=== PATIENT | male | born 1935 | race African-American/Black ===

== ENCOUNTER 2018-11-09 17:19 | Emergency (ER) | payer OTHER ==
[~2018-11-09] VITALS: Ht 172.7 cm; Wt 73.6 kg
[2018-11-09] MEDS ORDERED: RIOMET500 MG/5 M PO (17:30)
[2018-11-09] MEDS ORDERED: LIPITOR20 MG PO (17:30)
[2018-11-09] MEDS ORDERED: ASPIRIN81 MG PO (17:30)
[2018-11-09 17:31] VITALS: Ht 172.7 cm; Wt 73.6 kg
[2018-11-09] MEDS ORDERED: COREG25 MG PO (17:31)
[2018-11-09 18:58] LABS: BASOPHILS 0.1 % (0-2); EOSINOPHILS 0 % (0-7); HEMATOCRIT 45.6 % (42.0-54.0); HEMOGLOBIN 16.3 g/dL (13.5-17.5); IMMATURE GRANULOCYTES 0.3 % (0-5); LYMPHOCYTES 20.5 % (15-50); MCHC 35.7 g/dL (31.0-37.0); MCV 89.4 fL (80.0-100.0); MEAN PLATELET VOLUME 11.2 fL (7.4-10.4); MONOCYTES 4.3 % (2-11); NEUTROPHILS 74.8 % (40-80); PLATELET COUNT 210 10x3/uL (130-400); WBC 7.4 10x3/uL (4.8-10.8)
[2018-11-09 19:12] LABS: APTT 23.2 SECONDS (22.8-39.4); INR 1.05 (0.85-1.17); PROTIME 13.2 SECONDS (11.6-15.0)
[2018-11-09 19:15] LABS: ALBUMIN 3.9 g/dL (3.4-5.0); ALKALINE PHOSPHATASE 96 U/L (46-116); ALT (SGPT) 17 U/L (10-68); BILIRUBIN - TOTAL 0.65 mg/dL (0.2-1.3); CALC OSMOLALITY 268 mosm/kg (275-300); CALCIUM 9.3 mg/dL (8.5-10.1); CARBON DIOXIDE 29.8 mmol/L (21.0-32.0); CHLORIDE - SERUM 95 mmol/L (98-107); CREATININE - SERUM 0.9 mg/dL (0.6-1.3); GLUCOSE 174 mg/dL (74-106); POTASSIUM - SERUM 4.1 mmol/L (3.5-5.1); PROTEIN - SERUM 9.5 g/dL (6.4-8.2); SODIUM 133 mmol/L (136-145); UREA NITROGEN 10 mg/dL (7-18); eGFR NON AFRICAN AMERICAN 86 mL/min (90-120)
[2018-11-09 19:27] LABS: CKMB 1.8 U/L (0.0-3.6); CREATINE KINASE 127 UL (21-232); MAGNESIUM - SERUM 1.8 mg/dL (1.8-2.4); THYROID STIMULATING HORMONE 0.34 uIU/mL (0.36-3.74)
[2018-11-09 19:28] LABS: TROPONIN-I < 0.017 ng/mL (0.000-0.060)
[2018-11-09 19:32] LABS: APPEARANCE CLEAR (CLEAR); BILIRUBIN NEGATIVE (NEGATIVE); COLOR STRAW (YELLOW); GLUCOSE 250 mg/dL (NEGATIVE); KETONE NEGATIVE (NEGATIVE); NITRITE NEGATIVE (NEGATIVE); PROTEIN 1+ mg/dL (NEGATIVE); UROBILINOGEN NORMAL (NORMAL)
[2018-11-09 19:41] LABS: BACTERIA NONE SEEN /hpf (NONE SEEN); EPITHELIAL CELLS NSEEN /hpf (0-5); RED CELLS - URINE NONE SEEN /hpf (0-5); WHITE CELLS - URINE 0-5 /hpf (0-5)
[2018-11-09 20:19] VITALS: BP 181/95
[2018-11-13 10:05] VITALS: Ht 172.7 cm; Wt 73.6 kg
== END 2018-11-09 20:19 | disposition other institution (70) ==
LOC: D.ER 17:19
PROVIDERS: Family Medicine
DX: I63.9 Cerebral infarction, unspecified (principal); R53.1 Weakness; R26.2 Difficulty in walking, not elsewhere classified

== ENCOUNTER 2018-11-12 16:27 | Inpatient (IN) | payer MEDICARE ==
[~2018-11-12] VITALS: Ht 172.7 cm; Wt 74.8 kg
[~2018-11-12 16:27] MED LIST: ASPIRIN81 MG PO; COREG25 MG PO; LIPITOR20 MG PO; RIOMET500 MG/5 M PO
[2018-11-12 18:03] VITALS: BP 179/88; BMI 25.1
[2018-11-12 19:59] VITALS: BP 170/83
--- NOTE | 2018-11-12 20:00 | NUR ---
PATIENT RECEIVED SITTING UP IN BED WATCHING TV. VITAL SIGNS & ASSESSMENT DONE. NO C/O PAIN OR DISTRESS. BED LOW. CALL LIGHT WITHIN REACH. ALARM ON.WILL CONTINUE TO MONITOR.
[2018-11-12 21:52] VITALS: BP 163/82
--- NOTE | 2018-11-13 03:38 | NUR ---
PATIENT EYES CLOSED. RESPIRATIONS 18 & EVEN. BED LOW. CALL LIGHT WITHIN REACH. WILL CONTINUE TO MONITOR.
--- NOTE | 2018-11-13 03:52 | NUR ---
I have reviewed this patient and I concur with the Shift Assessment completed by the Licensed Practical Nurse today this shift.
[2018-11-13 08:00] VITALS: BP 193/98
[2018-11-13 09:09] LABS: CALC OSMOLALITY 277 mosm/kg (275-300); CARBON DIOXIDE 31.2 mmol/L (21.0-32.0); CHLORIDE - SERUM 100 mmol/L (98-107); GLUCOSE 147 mg/dL (74-106); POTASSIUM - SERUM 3.9 mmol/L (3.5-5.1); SODIUM 138 mmol/L (136-145); UREA NITROGEN 10 mg/dL (7-18); eGFR NON AFRICAN AMERICAN 76 mL/min (90-120)
[2018-11-13 09:24] LABS: BASOPHILS 0.3 % (0-2); EOSINOPHILS 1.9 % (0-7); HEMATOCRIT 42.5 % (42.0-54.0); HEMOGLOBIN 15.2 g/dL (13.5-17.5); IMMATURE GRANULOCYTES 0.3 % (0-5); LYMPHOCYTES 39.4 % (15-50); MCH 31.6 pg (26.0-34.0); MCHC 35.8 g/dL (31.0-37.0); MCV 88.4 fL (80.0-100.0); MEAN PLATELET VOLUME 11.4 fL (7.4-10.4); MONOCYTES 9.7 % (2-11); NEUTROPHILS 48.4 % (40-80); PLATELET COUNT 228 10x3/uL (130-400); RBC 4.81 10x6/uL (4.20-6.10); WBC 6.8 10x3/uL (4.8-10.8)
--- NOTE | 2018-11-13 09:30 | NUR ---
PT AM MEDS ADMINISTERED. PT RESTING IN BED AT THIS TIME, DENIES NEEDS. WCTM.
[2018-11-13 10:05] VITALS: Ht 172.7 cm; Wt 74.8 kg
--- NOTE | 2018-11-13 12:06 | NUR ---
PATIENT ADMITTED TO REHAB FROM AN OUTSIDE FACILITY. DISCHARGE PLANS ARE FOR PATIENT TO DISCHARGE HOME WITH FAMILY. WILL CONTINUE TO FOLLOW WITH PATIENT AND WILL ASSIST WITH DISCHARGE NEEDS
--- NOTE | 2018-11-13 17:26 | NUR ---
PT SITTING UP EATING DINNER, DENIES NEEDS. WCTM.
--- NOTE | 2018-11-13 19:15 | NUR ---
GREETED PATIENT AND INTRODUCED MYSELF HIS NURSE. PATIENT IS SITTING UP IN BED FINISHING HIS SUPPER. RESPIRATIONS EVEN. NO S/S OF DISTRESS. CALL LIGHT IN REACH. DENIES ANY EVIDENCE OF PAIN AT THIS TIME. CALL LIGHT IN REACH. VITAL SIGNS OBTAINED.
[2018-11-13 19:20] VITALS: BP 131/69
--- NOTE | 2018-11-13 23:00 | NUR ---
ASSISTED PATIENT TO BATHROOM USING WHEELCHAIR. BACK TO BED AND REPOSITIONED FOR COMFORT. CALL LIGHT IN REACH.
--- NOTE | 2018-11-14 07:57 | NUR ---
PT SITTING UP IN BED EATING BREAKFAST, DENIES NEEDS. WCTM.
[2018-11-14 18:41] VITALS: BP 150/80
[2018-11-14 19:14] VITALS: BP 121/65
--- NOTE | 2018-11-14 19:14 | NUR ---
GREETED PATIENT AND INTRODUCED MYSELF. PATIENT IS LAYING IN BED WATCHING TV. DENIES ANY NEEDS AT THIS TIME. RESPIRATIONS EVEN. NO S/S OF DISTRESS. CALL LIGHT IN REACH.
--- NOTE | 2018-11-15 01:33 | NUR ---
PATIENT CLEANED OF INCONTINET BM. COMPLETE LINEN CHANGE. BACK TO BED AND REPOSITIONED FOR COMFORT. CALL LIGHT IN REACH.
--- NOTE | 2018-11-15 08:53 | NUR ---
PT AM MEDS ADMINISTERED. PT DENIES NEEDS. WCTM.
[2018-11-15 09:03] VITALS: BP 114/52
--- NOTE | 2018-11-15 18:34 | NUR ---
PT RESTING IN BED, DENIES NEEDS. WCTM.
[2018-11-15 19:36] VITALS: BP 120/56
--- NOTE | 2018-11-15 20:13 | NUR ---
PATIENT RECEIVED SITTING UP IN BED. NO C/O PAIN OR DISTRESS. BED LOW. CALL LIGHT WITHIN REACH. WILL CONTINUE TO MONITOR.
--- NOTE | 2018-11-16 03:14 | NUR ---
I have reviewed this patient and I concur with the Shift Assessment completed by the Licensed Practical Nurse today this shift.
[2018-11-16 06:41] LABS: BASOPHILS 0.1 % (0-2); EOSINOPHILS 1.8 % (0-7); HEMATOCRIT 41.4 % (42.0-54.0); HEMOGLOBIN 14.5 g/dL (13.5-17.5); IMMATURE GRANULOCYTES 0.5 % (0-5); MCH 31.4 pg (26.0-34.0); MCV 89.6 fL (80.0-100.0); MEAN PLATELET VOLUME 11.2 fL (7.4-10.4); MONOCYTES 7.9 % (2-11); NEUTROPHILS 50.7 % (40-80); PLATELET COUNT 227 10x3/uL (130-400); RBC 4.62 10x6/uL (4.20-6.10); RDW 13.2 % (11.5-14.5)
[2018-11-16 07:02] LABS: ANION GAP 10.6 mmol/L (8-16); CALCIUM 8.6 mg/dL (8.5-10.1); CARBON DIOXIDE 29.5 mmol/L (21.0-32.0); CREATININE - SERUM 1.1 mg/dL (0.6-1.3); POTASSIUM - SERUM 4.1 mmol/L (3.5-5.1)
[2018-11-16 07:47] VITALS: BP 108/69
--- NOTE | 2018-11-16 14:30 | NUR ---
RESTING QUIETLY IN BED. WATCHING TV. CALL LIGHT IN REACH
--- NOTE | 2018-11-16 15:24 | NUR ---
Nutrition Follow-up: Pt reports a good appetite but request that I remove all types of chicken and hamburgers from his diet. Other beef items are okay. Diet: Diabetic PO intake: 64% x 9 meals Meds, labs, and skin assessment reviewed +BM Wt: 165# (11/13/18) RD Following
--- NOTE | 2018-11-16 20:00 | NUR ---
PATIENT RECEIVED SITTING UP IN BED. VITAL SIGNS & ASSESSMENT DONE. NO C/O PAIN OR DISTRESS. BED LOW. ALARM ON. URINAL & CALL LIGHT WITHIN REACH. WILL CONTINUE TO MONITOR.
[2018-11-16 21:07] VITALS: BP 140/68
--- NOTE | 2018-11-17 02:42 | NUR ---
I have reviewed this patient and I concur with the Shift Assessment completed by the Licensed Practical Nurse today this shift.
[2018-11-17 07:51] VITALS: BP 151/79
--- NOTE | 2018-11-17 08:00 | NUR ---
PT RESTING IN BED WITH EYES OPEN CALL LIGHT IN REACH NO PROBLEMS WILL MONITER
--- NOTE | 2018-11-17 12:30 | NUR ---
PT RESTING IN BED EYES OPEN CALL LIGHT IN REACH NO PROBLEMS WILL MONITER
[2018-11-17 19:00] VITALS: BP 139/67
--- NOTE | 2018-11-17 19:12 | NUR ---
GREETED PATIENT AND INTRODUCED MYSELF HIS NURSE. PATIENT IS LAYING IN BED WATCHING TV. DENIES ANY NEEDS AT THIS TIME. CALL LIGHT IN REACH.
--- NOTE | 2018-11-18 01:38 | NUR ---
REC'D. IN BED EYES CLOSED RESP DEEP AND EVEN WILL CONTINUE TO MONITOR THROUGH OUT THE SHIFT FOR ANY CHGES. AND FOLLOW CURRENT PLAN OF CARE.
[2018-11-18 07:37] LABS: BASOPHILS 0.2 % (0-2); HEMATOCRIT 39.1 % (42.0-54.0); HEMOGLOBIN 13.8 g/dL (13.5-17.5); IMMATURE GRANULOCYTES 0.3 % (0-5); LYMPHOCYTES 39.9 % (15-50); MCH 31.4 pg (26.0-34.0); MCHC 35.3 g/dL (31.0-37.0); MCV 88.9 fL (80.0-100.0); MEAN PLATELET VOLUME 10.8 fL (7.4-10.4); MONOCYTES 9.8 % (2-11); NEUTROPHILS 47.8 % (40-80); PLATELET COUNT 205 10x3/uL (130-400); RDW 12.9 % (11.5-14.5)
[2018-11-18 07:42] LABS: CALC OSMOLALITY 274 mosm/kg (275-300); CALCIUM 8.7 mg/dL (8.5-10.1); CARBON DIOXIDE 29.4 mmol/L (21.0-32.0); CHLORIDE - SERUM 103 mmol/L (98-107); CREATININE - SERUM 0.9 mg/dL (0.6-1.3); GLUCOSE 104 mg/dL (74-106); POTASSIUM - SERUM 4.3 mmol/L (3.5-5.1); SODIUM 138 mmol/L (136-145); UREA NITROGEN 11 mg/dL (7-18); eGFR NON AFRICAN AMERICAN 86 mL/min (90-120)
--- NOTE | 2018-11-18 07:45 | NUR ---
PT AM MEDS ADMINISTERED. PT EATING BREAKFAST AT THIS TIME. DENIES NEEDS. WCTM.
[2018-11-18 08:01] VITALS: BP 162/71
--- NOTE | 2018-11-18 14:35 | NUR ---
Nutrition Note: Discussed in care team meeting today. Reported patient with poor oral nutrition intake. PO intake recorded into chart as 75-100% all meals. Will add Glucerna with meals to help meet nutrition needs. RD will continue to follow.
--- NOTE | 2018-11-18 14:39 | RHP ---
PATIENT: THIERRY JOSUE MEDICAL RECORD: [id number] ACCOUNT: [id number] LOCATION:[facility]1114 : 37 ADMISSION DATE: 11/12/18 REHABILITATION HISTORY AND PHYSICAL EXAMINATION POST ADMISSION PHYSICIAN EXAMINATION DATE OF ADMISSION: 11/12/2018. ADMITTING DIAGNOSIS: Cerebrovascular accident. HISTORY OF PRESENT ILLNESS: The patient is an 83-year-old gentleman that woke up on the morning of 11/09/2018 feeling his normal self and after being up approximately 2 hours began having an unsteady gait and began vomiting. He stated that the gait worsened throughout the day and began to have slurred speech with his noted improved Later. His gait continued to deteriorate. He was unable to ambulate and presented to [place] via EMS and was found to have a small age indeterminate right chambers radiata lacunar infarct and was transferred to [facility] for neurology consultation. The patient did have a hypotensive episode that evening and then had some elevation in blood pressures at that time. He was given 1 dose of hydralazine and Coreg and was increased to b.i.d. He was noted to have self-care deficits. He has got a need for continued management of his hypertension. His blood sugars have been quite resistant at times. These are all barriers to his discharge prior to this and he was completely independent at home living with his . He is currently min to max assist with ambulation at 10 feet with a rolling walker and moderate assist with ADLs. He will require intensive inpatient therapy, hopefully we can get him back to his prior level of functioning and back home with his . COMORBIDITIES: Include diabetes, hyperlipidemia, history of coronary artery bypass grafting, history of colon cancer and colostomy, cataracts, falls, hypoxia. PAST MEDICAL HISTORY: Significant for colon cancer, cataracts, diabetes, hypertension, and coronary artery disease. PAST SURGICAL HISTORY: Includes coronary artery bypass grafting and colostomy. ALLERGIES: No known drug allergies. CURRENT MEDICATIONS: Include Plavix 75 mg daily, Lipitor 40 mg daily, carvedilol 12.5 mg b.i.d. with meals. He is on aspirin 81 mg daily, and metformin 500 mg b.i.d. with meals. HABITS: No alcohol or tobacco use. FAMILY HISTORY: Noncontributory. SOCIAL HISTORY: The patient hopes to return back home and get back to his prior level of functioning. REVIEW OF SYSTEMS: GENERAL: Does complain of weakness, mainly on one side. HEENT: Denies cold, cough, or congestion. CARDIOVASCULAR: Denies any chest pain. HISTORY AND PHYSICAL [id number] THIERRY JOSEU PHYSICAL EXAMINATION: VITAL SIGNS: Stable, afebrile. GENERAL: A well-developed elderly gentleman in no acute distress, alert upon exam. HEENT: Normocephalic and atraumatic. Mucosa moist. NECK: Supple. No lymphadenopathy. LUNGS: Clear at this time. No wheezing, rhonchi, or rales. HEART: Regular rate and rhythm. No murmurs, rubs or gallops. ABDOMEN: Soft, benign, and nondistended. Positive bowel sounds times 4. EXTREMITIES: No clubbing, cyanosis or edema. NEUROLOGIC: He does have noted weakness in his lower extremities. 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 LABORATORY DATA: Labs are pending at this time. ASSESSMENT: This is an 83-year-old gentleman admitted to the rehab with a working diagnosis of cerebrovascular accident. The patient has potential to make improvement. We instituted the following multidisciplinary therapies including, but not limited to physical, occupational, respiratory, speech, nutritional services, prosthetics and orthotics. Given his complex medical condition and risk for more complications, rehabilitation services cannot be provided at a low level of care such as detention facility. PLAN: 1. Admit to [facility] rehab for an intensive inpatient therapy to include the following disciplines: A. Physical therapy to improve gait, all transfer skills and bed mobility to a modified independent level. B. Occupational therapy to improve activities of daily living to a modified independent level. C. Case management to assist with discharge planning and placement options. D. Nutrition to assist with nutritional needs. E. Rehabilitation nursing to assist in monitoring the patient's underlying medical conditions and to assist with any type of bowel or bladder management. 2. The patient's current medication and medical care will be continued. 3. The patient will be placed on standard fall precautions. 4. The patient's estimated length of stay is approximately 7-10 days. 5. We will discuss the patient during care team staff meeting this week. TRANSINT:[id number] Voice Confirmation ID: [id number] DOCUMENT ID: [id number] KIMBERLY notes whether there has been none or any medical/functional change since admission: - No change since preadmission screen. KIMBERLY attests patient continues to be appropriate for IRF: - Continues to be appropriate. HISTORY AND PHYSICAL [id number] THIERRY JOSUE,KVNG ROMAN MD at 1439 CC: [id number] DICTATION DATE: 11/13/18 0847 MOLDER TRIMMER: 11/13/18 0903 ADM IN [place] [id number] [place] [id number]
--- NOTE | 2018-11-18 15:10 | NUR ---
PT RESTING IN BED WATCHING TV, DENIES NEEDS. WCTM.
[2018-11-18 19:15] VITALS: BP 134/68
--- NOTE | 2018-11-18 19:25 | NUR ---
PT LYING IN BED. CL IN REACH. DENIES NEEDS AT THIS TIME. BED IN LOW SIDE RAILS X2. A/O X4. LUNGS CLEAR. BOWEL ACTIVE X4. RESP EVEN AND UNLABORED. WCTM
--- NOTE | 2018-11-19 02:00 | NUR ---
PT RESTING QUIETLY. CL IN REACH. NO DISTRESS NOTED. WCTM
--- NOTE | 2018-11-19 05:42 | NUR ---
EMPTIED 400CC OUT OF URINAL.
[2018-11-19 08:00] VITALS: BP 173/82
--- NOTE | 2018-11-19 08:00 | NUR ---
SITTING ON SIDE OF BED FOR BREAKFAST.MEDS GIVEN.DENIES NEEDS.
--- NOTE | 2018-11-19 14:12 | NUR ---
CLINICAL UPDATES FAXED TO LORRI SAMANO AT , REF. #[id number], ID. # [id number], WITH CONFORMATION RECIEVED. WILL CONTINUE TO FOLLOW WITH PATIENT.
--- NOTE | 2018-11-19 19:26 | NUR ---
GREETED PATIENT INTRODUCED MYSELF HIS NURSE. PATIENT LAYING IN BED WATCHING TV. DENIES ANY NEEDS AT THIS TIME. CALL LIGHT IN REACH.
[2018-11-19 20:00] VITALS: BP 108/72
--- NOTE | 2018-11-20 01:47 | NUR ---
PT. RESTING QUIETLY WITH EYES CLOSED LAYING ON RIGHT SIDE. RESPIRATIONS EVEN. NO S/S OF DISTRESS. SR UP X 2. BED IN LOWEST POSITION. CALL LIGHT IN REACH.
--- NOTE | 2018-11-20 03:43 | NUR ---
PT. AWAKE AND ASSISTED TO BATHROOM USING WHEELCHAIR. BACK TO BED AND REPOSITIONED FOR COMFORT. CALL LIGHT IN REACH.
[2018-11-20 07:51] LABS: BASOPHILS 0.3 % (0-2); EOSINOPHILS 2.3 % (0-7); HEMATOCRIT 39.9 % (42.0-54.0); IMMATURE GRANULOCYTES 0.1 % (0-5); LYMPHOCYTES 44.2 % (15-50); MCH 31.5 pg (26.0-34.0); MCHC 35.1 g/dL (31.0-37.0); MCV 89.7 fL (80.0-100.0); MEAN PLATELET VOLUME 11.2 fL (7.4-10.4); MONOCYTES 8.5 % (2-11); NEUTROPHILS 44.6 % (40-80); PLATELET COUNT 229 10x3/uL (130-400); RBC 4.45 10x6/uL (4.20-6.10); RDW 12.9 % (11.5-14.5)
[2018-11-20 07:54] LABS: CALC OSMOLALITY 274 mosm/kg (275-300); CHLORIDE - SERUM 101 mmol/L (98-107); CREATININE - SERUM 0.9 mg/dL (0.6-1.3); GLUCOSE 82 mg/dL (74-106); POTASSIUM - SERUM 4.6 mmol/L (3.5-5.1); SODIUM 138 mmol/L (136-145); UREA NITROGEN 13 mg/dL (7-18); eGFR NON AFRICAN AMERICAN 86 mL/min (90-120)
[2018-11-20 08:00] VITALS: BP 174/78
--- NOTE | 2018-11-20 19:46 | NUR ---
PT RESTING IN BED WITH EYES CLOSED. NO DISTRESS NOTED. AWOKE EASILY TO VERBAL STIMULI. NO NEEDS VOICED. A/O X3. SR'S ARE UP X 2 IN BED. CALL LIGHT AND BEDSIDE TABLE ARE WITHIN EASY REACH.
[2018-11-20 21:42] VITALS: BP 143/69
--- NOTE | 2018-11-20 23:13 | NUR ---
RESTING IN BED WITH EYES CLOSED. USING URINAL PRN.
--- NOTE | 2018-11-21 04:58 | NUR ---
I have reviewed this patient and I concur with the Shift Assessment completed by the Licensed Practical Nurse today this shift.
--- NOTE | 2018-11-21 07:55 | NUR ---
PT SITTING ON SIDE OF BED EATING BREAKFAST CALL LIGHT IN REACH NO PROBLEMS WILL MONITER
[2018-11-21 10:35] VITALS: BP 145/64
--- NOTE | 2018-11-21 18:00 | NUR ---
PT RESTING IN BED WITH EYES OPEN CALL LIGHT IN REACH WILL MONITER
--- NOTE | 2018-11-21 19:23 | NUR ---
PT SITTING UP IN BED WATCHING TV. CL IN REACH. A/O X4. DENIES NEEDS OR PAIN AT THIS TIME. BED IN LOW SIDE RAILS X2. RESP EVEN AND UNLABORED. WILL CONTINUE TO MONITOR.
[2018-11-21 20:32] VITALS: BP 153/72
--- NOTE | 2018-11-22 01:14 | NUR ---
I have reviewed this patient and I concur with the Shift Assessment completed by the Licensed Practical Nurse today this shift.
--- NOTE | 2018-11-22 02:05 | NUR ---
PT RESTING QUIETLY. CL IN REACH. NO DISTRESS NOTED. RESP EVEN AND UNLABORED. WCTM
--- NOTE | 2018-11-22 05:16 | NUR ---
PT RESTING QUIETLY. CL IN REACH. NO DISTRESS NOTED. RESP EVEN AND UNLABORED. WCTM
--- NOTE | 2018-11-22 08:00 | NUR ---
PT RESTING IN BED WITH EYES OPEN CALL LIGHT IN REACH NO PROBLEMS WILL MONITER
--- NOTE | 2018-11-22 11:59 | NUR ---
PT RESTING IN BED WITH EYES OPEN CALL LIGHT IN REACH NO PROBLEMS WILL MONITER
--- NOTE | 2018-11-22 13:09 | NUR ---
PT RESTING IN BED WITH EYES OPEN CALL LIGHT IN REACH NO PROBLEMS WILL MONITER
[2018-11-22 13:25] VITALS: BP 126/62
--- NOTE | 2018-11-22 13:45 | NUR ---
PATIENT RECIEVED FROM PREVIOUS NURSE RESTING IN BED WITH AT SIDE, NO NEEDS VOICED, CL IN REACH
--- NOTE | 2018-11-22 19:23 | NUR ---
PT LYING IN BED WATCHING TV. CL IN REACH. DENIES NEEDS AT THIS TIME. BED IN LOW SIDE RAILS X2. A/O X4. BED IN LOW SIDE RAILS X2. RESP EVEN AND UNLABORED. WCTM
[2018-11-22 20:40] VITALS: BP 143/70
--- NOTE | 2018-11-22 22:58 | NUR ---
I have reviewed this patient and I concur with the Shift Assessment completed by the Licensed Practical Nurse today this shift.
[2018-11-23 06:21] LABS: BASOPHILS 0.3 % (0-2); EOSINOPHILS 2.1 % (0-7); HEMATOCRIT 39.2 % (42.0-54.0); HEMOGLOBIN 13.7 g/dL (13.5-17.5); IMMATURE GRANULOCYTES 0.4 % (0-5); LYMPHOCYTES 43.2 % (15-50); MCH 31.4 pg (26.0-34.0); MCHC 34.9 g/dL (31.0-37.0); MCV 89.9 fL (80.0-100.0); MEAN PLATELET VOLUME 11.5 fL (7.4-10.4); MONOCYTES 9.1 % (2-11); NEUTROPHILS 44.9 % (40-80); PLATELET COUNT 222 10x3/uL (130-400); RBC 4.36 10x6/uL (4.20-6.10); RDW 12.8 % (11.5-14.5); WBC 7.2 10x3/uL (4.8-10.8)
[2018-11-23 06:22] LABS: CALC OSMOLALITY 280 mosm/kg (275-300); CALCIUM 8.8 mg/dL (8.5-10.1); CARBON DIOXIDE 31.1 mmol/L (21.0-32.0); CHLORIDE - SERUM 104 mmol/L (98-107); GLUCOSE 81 mg/dL (74-106); POTASSIUM - SERUM 4.4 mmol/L (3.5-5.1); SODIUM 141 mmol/L (136-145); UREA NITROGEN 16 mg/dL (7-18); eGFR NON AFRICAN AMERICAN 76 mL/min (90-120)
--- NOTE | 2018-11-23 08:45 | NUR ---
PT AM MEDS ADMINISTERED. PT RESTING IN BED, DENIES NEEDS. WCTM.
[2018-11-23 11:55] VITALS: BP 116/65
[2018-11-23 18:41] VITALS: BP 139/60
--- NOTE | 2018-11-23 21:03 | NUR ---
REST IN BED AND WATCH TV. CALL LIGHT IN REACH.
[2018-11-23 22:46] VITALS: BP 147/68
--- NOTE | 2018-11-23 23:37 | NUR ---
I have reviewed this patient and I concur with the Shift Assessment completed by the Licensed Practical Nurse today this shift.
--- NOTE | 2018-11-24 01:06 | NUR ---
REST IN BED. CALL LIGHT IN REACH.
[2018-11-24 08:21] VITALS: BP 164/72
--- NOTE | 2018-11-24 08:30 | NUR ---
PT AM MEDS ADMINISTERED. PT DENIES NEEDS. WCTM.
--- NOTE | 2018-11-24 15:19 | NUR ---
Nutrition Follow-up: Diet: Diabetic + Glucerna with meals PO intake: none recently recorded (previously 75-100%) Pt states appetite is okay but that he does not like the food here. Had taco garza cup sitting on bedside table. States that he is eating. Likes strawberry Glucerna. Labs, meds, and skin assessment reviewed Last BM recorded 11/15/18 Last Wt: 165# (11/13/18) Please get new weight. Consider increase/addition bowel regimen if last BM truly [address] Following
--- NOTE | 2018-11-24 19:19 | NUR ---
AWAKE AND ALERT. RESTING IN BED. RESPIRATIONS UNLABORED. CABG INCISION INTACT. SPPECH SLOW BUT CLEAR. SOME RIGHT SIDED WEAKNESS. NO ACUTE DISTRESS NOTED. CALL LIGHT IN REACH.
[2018-11-24 20:46] VITALS: BP 110/62
--- NOTE | 2018-11-25 00:24 | NUR ---
RESTING IN BED WITH EYES CLOSED AND RESPIRATIONS UNALBORED. NO DISTRESS NOTED. CALL LIGHT IN REACH.
--- NOTE | 2018-11-25 03:25 | NUR ---
CONTINUES RESTING IN BED WITH RESPIRATIONS UNLABORED. NO DISTRESS NOTED.
--- NOTE | 2018-11-25 05:05 | NUR ---
QUIET HOURS. NO ACUTE CHANGES IN CONDITION THIS SHIFT. NO DISTRESS NOTED. CALL LIGHT IN REACH.
[2018-11-25 06:36] LABS: BASOPHILS 0.3 % (0-2); EOSINOPHILS 2.1 % (0-7); HEMATOCRIT 37.1 % (42.0-54.0); HEMOGLOBIN 12.9 g/dL (13.5-17.5); IMMATURE GRANULOCYTES 0.4 % (0-5); LYMPHOCYTES 45.2 % (15-50); MCH 31.1 pg (26.0-34.0); MCHC 34.8 g/dL (31.0-37.0); MCV 89.4 fL (80.0-100.0); MEAN PLATELET VOLUME 11.6 fL (7.4-10.4); MONOCYTES 9.7 % (2-11); NEUTROPHILS 42.3 % (40-80); PLATELET COUNT 227 10x3/uL (130-400); RBC 4.15 10x6/uL (4.20-6.10); RDW 12.8 % (11.5-14.5); WBC 7.1 10x3/uL (4.8-10.8)
[2018-11-25 07:33] LABS: CALC OSMOLALITY 282 mosm/kg (275-300); CALCIUM 8.5 mg/dL (8.5-10.1); CHLORIDE - SERUM 104 mmol/L (98-107); CREATININE - SERUM 0.9 mg/dL (0.6-1.3); GLUCOSE 92 mg/dL (74-106); POTASSIUM - SERUM 4.4 mmol/L (3.5-5.1); SODIUM 141 mmol/L (136-145); UREA NITROGEN 17 mg/dL (7-18); eGFR NON AFRICAN AMERICAN 86 mL/min (90-120)
--- NOTE | 2018-11-25 07:38 | NUR ---
PT RESTING IN BED WITH EYES OPEN CALL LIGHT IN REACH WILL MONITER
[2018-11-25 07:56] VITALS: BP 165/74
--- NOTE | 2018-11-25 18:15 | NUR ---
PT RESTING IN BED WITH EYES OPEN CALL LIGHT IN REACH NO PROBLEMS WILL MONITER
[2018-11-25 20:04] VITALS: BP 155/72
--- NOTE | 2018-11-25 20:14 | NUR ---
PATIENT RECEIVED LAYING IN BED. ASSESSMENT & VITAL SIGNS DONE. NO C/O PAIN OR DISTRESS. BED LOW. CALL LIGHT WITHIN REACH. WILL CONTINUE TO MONITOR.
--- NOTE | 2018-11-26 02:04 | NUR ---
I have reviewed this patient and I concur with the Shift Assessment completed by the Licensed Practical Nurse today this shift.
--- NOTE | 2018-11-26 02:48 | NUR ---
PATIENT EYES CLOSED. RESPIRATIONS 18 & EVEN. URINAL & CALL LIGHT WITHIN REACH. BED LOW. ALARM ON. WILL CONTINUE TO MONITOR.
--- NOTE | 2018-11-26 07:47 | NUR ---
PT RESTING IN B BED WITH EYES OPEN CALL LIGHT IN REACH NO PROBLEMS WILL MONITER
[2018-11-26 08:00] VITALS: BP 139/69
--- NOTE | 2018-11-26 10:04 | NUR ---
ORDER HAS BEEN FAXED TO [facility] FOR A WHEELCHAIR FOR PATIENT.
--- NOTE | 2018-11-26 16:08 | NUR ---
PATIENT IS DISCHARGING HOME IN AM WITH FAMILY. [facility] PROVIDE [facility] AT HOME.[facility] WILL DELIVER A WHEELCHAIR TO PATIENT. DR. AMIE GLEZ 12/03/18 @ 9:30. PATIENT CHOICE FORM AND [facility] FORMS SIGNED, COPY GIVEN TO SPOUSE AND FILED IN CHART. DISCHARGE INSTRUCTIONS WILL BE FAXED TO PCP, HOME [facility] AND TO LORRI SAMANO AT , AUTH. # [id number], IN AM. WILL CONTINUE TO FOLLOW WITH PATIENT.
[2018-11-26 19:41] VITALS: BP 120/55
--- NOTE | 2018-11-26 23:07 | NUR ---
PATIENT RECEIVED LAYING IN BED. ASSESSMENT & VITAL SIGNS DONE. NO C/O PAIN OR DISTRESS. BED LOW. ALARM ON. CALL LIGHT & URINAL WITHIN REACH. WILL CONTINUE TO MONITOR.
--- NOTE | 2018-11-27 06:26 | NUR ---
I have reviewed this patient and I concur with the Shift Assessment completed by the Licensed Practical Nurse today this shift.
[2018-11-27 08:36] VITALS: BP 163/74
[2018-11-27] MEDS ORDERED: PLAVIX75 MG PO (08:39)
--- NOTE | 2018-11-27 12:15 | NUR ---
PT DISCHARGED TO HOME VIA WHEELCHAIR WITH PT DISCHARGE SUMMARY AND MEDS REVIEWED ALL DISCHARGE MEDS CALLED TO [facility] ON [address] PT TOLERATED WELL
== END 2018-11-27 14:09 | disposition home health service (06) | DRG 57 ==
LOC: D.REHAB 16:27
PROVIDERS: ADMIT Emergency Medicine; ATTEND Emergency Medicine
DX: I69.30 Unspecified sequelae of cerebral infarction (principal); E11.9 Type 2 diabetes mellitus without complications; E78.5 Hyperlipidemia, unspecified; Z95.1 Presence of aortocoronary bypass graft; R09.02 Hypoxemia; Z85.038 Personal history of other malignant neoplasm of large intestine; B35.1 Tinea unguium; L60.2 Onychogryphosis; I10 Essential (primary) hypertension